=== PATIENT | male | born 1980 | race Caucasian/White ===

== ENCOUNTER 2018-02-21 17:30 | Emergency (ER) | payer MEDICAID ==
--- NOTE | 2018-02-21 18:38 | Emergency Department Record ---
History of Present Illness - General Chief Complaint: Back Pain/Injury Stated Complaint: LOWER AND UPPER BACK PAIN Time Seen by Provider: 02/21/18 18:35 Source: Patient Mode of Arrival: Ambulatory Limitations: No limitations - History of Present Illness Initial Comments: 37 yo male presents to ED for evaluation of his chronic mid-low back pain symptoms resulting from scoliosis and previous shoulder injury. Patient reports that he has been unable to see his pain specialist, and has been out of his Tramadol for 3 weeks. Patient has also attempted to call his PCP who has been on vacation. Patient reports that he has been taking Tramadol as needed for 6-8 years for his symptoms, denies new injury, fevers, lower extremity weakness, or numbness over the groin region. MD Complaint: Back pain Onset/Timin -: Year(s) Similar Symptoms Previously: Yes Place: Home Radiation: None Severity: Mild Severity scale (1-10): 4 Quality: Aching Consistency: Constant Improves With: None Worsens With: None Context: Unknown Associated Symptoms: Denies other symptoms - Related Data Previous Rx's Medication Instructions Recorded Tramadol HCl 50 mg PO Q6H PRN #15 tab 02/21/18 Allergies Allergy/AdvReac Type Severity Reaction Status Date / Time No Known Drug Allergies Allergy Verified 02/21/18 18:30 Travel Screening - Travel/Exposure Within Last 30 Days Have you traveled within the last 30 days?: No Review of Systems Constitutional: Denies: Chills, Fever, Malaise, Night sweats Eyes: Denies: Eye discharge, Eye pain ENT: Denies: Congestion, Ear pain, Epistaxis Respiratory: Denies: Cough, Dyspnea Cardiovascular: Denies: Chest pain, Dyspnea on exertion Endocrine: Denies: Fatigue, Heat or cold intolerance Gastrointestinal: Denies: Abdominal pain, Nausea, Vomiting Genitourinary: Denies: Incontinence, Retention Musculoskeletal: Reports: Back pain. Denies: Arthralgia, Gout Skin: Denies: Bruising, Change in color Neurological: Denies: Abnormal gait, Confusion, Headache Psychiatric: Denies: Anxiety Hematological/Lymphatic: Denies: Anemia, Blood Clots Past Medical History - SOCIAL HISTORY Smoking Status: Never smoker Alcohol Use: None Drug Use: None - RESPIRATORY Hx Respiratory Disorders: No - CARDIOVASCULAR Hx Cardio Disorders: No - NEURO Hx Neuro Disorders: No - GI Hx GI Disorders: No - Hx Genitourinary Disorders: No - ENDOCRINE Hx Endocrine Disorders: No - MUSCULOSKELETAL Hx Musculoskeletal Disorders: Yes Hx Back Injury: Yes Comment:: scoliosis, bulging discs - PSYCH Hx Psych Problems: No - HEMATOLOGY/ONCOLOGY Hx Hematology/Oncology Disorders: No Family Medical History Any Significant Family History?: No Physical Exam - General General Appearance: Alert, Oriented x3, Cooperative, Mild distress Limitations: No limitations - Head Head exam: Atraumatic, Normocephalic, Normal inspection Head exam detail: negative: Abrasion, Contusion, Worthington's sign, General tenderness, Hematoma, Laceration - Eye Eye exam: Normal appearance. negative: Conjunctival injection, Periorbital tenderness, Scleral icterus - ENT Ear exam: negative: Auricular hematoma, Auricular trauma Nasal Exam: negative: Active bleeding, Discharge, Dried blood Mouth exam: negative: Drooling, Laceration, Tongue elevation - Neck Neck exam: Normal inspection. negative: Meningismus, Tenderness - Respiratory Respiratory exam: Normal lung sounds bilaterally. negative: Respiratory distress, Rhonchi, Stridor - Cardiovascular Cardiovascular Exam: Regular rate, Normal rhythm, Normal heart sounds - GI/Abdominal GI/Abdominal exam: Soft. negative: Rebound, Rigid, Tenderness - Rectal Rectal exam: Deferred - exam: Deferred - Extremities Extremities exam: Normal inspection. negative: Pedal edema, Tenderness - Back Back exam: Denies: CVA tenderness (R), CVA tenderness (L) - Neurological Neurological exam: Alert, Normal gait, Oriented X3 - Psychiatric Psychiatric exam: Normal affect, Normal mood - Skin Skin exam: Abrasion Type of lesion: negative: abrasion Course Vital Signs 02/21/18 18:15 Temperature 98.3 F Pulse Rate 95 H Respiratory 20 Rate Blood Pressure 135/100 Pulse Ox 98 - Reevaluation(s) Reevaluation #1: 02/21/18 18:43 Patient was seen and examined, will refill Tramdol #15 tablets to get the patient through the weekend until he can follow-up with his PCP Saturday. Will also refer the patient to Dr. Arteaga for pain management consultation. Patient agrees with the plan of care as discussed and appears stable for discharge at this time. Disposition Disposition: Discharge Clinical Impression: Chronic back pain Qualifiers: Back pain location: back pain in unspecified location Back pain laterality: midline Qualified Code(s): M54.9 - Dorsalgia, unspecified Disposition: Home, Self-Care Condition: (2) Stable Instructions: Chronic Back Pain (ED) Additional Instructions: Return to ED if your symptoms worsen or if you have any concerns. Tramadol as directed. Follow-up with your family doctor in [address] Arteaga for consultation Saturday as well. Prescriptions: Tramadol HCl 50 mg PO Q6H PRN #15 tab PRN Reason: Pain - Moderate (5-7) Referrals: ROMULO ARTEAGA [DOCTOR OF OSTEOPATH] - [facility] [Provider Group] Forms: Patient Portal Access Time of Disposition: 18:37 Quality - Quality Measures Quality Measures: N/A - Blood Pressure Screening Does Patient Have Any of the Following: No Blood Pressure Classification: Pre-Hypertensive BP Reading Systolic Measurement: 129 Diastolic Measurement: 86 Screening for High Blood Pressure: < Pre-Hypertensive BP, F/U Documented > [ G8950] Pre-Hypertensive Follow-up Interventions: Referral to alternative/primary care provider.
== END 2018-02-21 19:06 | disposition home or self-care (01) ==
LOC: ER 17:30
DX: G89.29 Other chronic pain (principal); M54.5 Low back pain; M54.6 Pain in thoracic spine; M41.9 Scoliosis, unspecified
CPT/HCPCS: 99283

== ENCOUNTER 2018-02-24 13:41 | Emergency (ER) | payer MEDICAID ==
--- NOTE | 2018-02-24 14:23 | Emergency Department Record ---
History of Present Illness - General Chief Complaint: Back Pain/Injury Stated Complaint: BACK PAIN Time Seen by Provider: 02/24/18 14:09 Source: Patient Mode of Arrival: Ambulatory Limitations: No limitations - History of Present Illness Initial Comments: 37 yo male presents with back pain. He had a history of injury at age 23 from sports. He states that there was a mix up with scheduling with his PCP and pain specialities. He has been off his Tramadol for over a month. His chronic pain is in the low back. He has had numbness in the feet that has been ongoing and not new. No new symptoms. No changes in bowel or bladder function. No weakness. No recent MRI's. He was seen in [facility] ED on 02/21/18. No new symptoms since then. His pain specialist is Nick Enriquez MD Complaint: Back pain Onset/Timin -: Days(s) Similar Symptoms Previously: Yes Place: Home Radiation: None Severity scale (1-10): 4 Quality: Aching Consistency: Constant Improves With: None Worsens With: None Context: Other Associated Symptoms: Denies other symptoms Treatments Prior to Arrival: Prescription analgesics - Related Data Previous Rx's Medication Instructions Recorded Tramadol HCl 50 mg PO Q6H PRN #15 tab 02/21/18 Tramadol HCl 50 mg PO BID #16 tab 02/24/18 Allergies Allergy/AdvReac Type Severity Reaction Status Date / Time No Known Drug Allergies Allergy Verified 02/21/18 18:30 Travel Screening - Travel/Exposure Within Last 30 Days Have you traveled within the last 30 days?: No Review of Systems Constitutional: Denies: Chills, Fever, Malaise, Weakness Eyes: Denies: Eye discharge ENT: Denies: Congestion, Throat pain Respiratory: Denies: Cough Cardiovascular: Denies: Chest pain, Palpitations, Syncope Endocrine: Denies: Fatigue, Polydipsia, Polyuria Gastrointestinal: Denies: Abdominal pain, Diarrhea, Nausea, Vomiting Genitourinary: Denies: Dysuria, Frequency, Hematuria Musculoskeletal: Reports: Back pain. Denies: Arthralgia, Joint swelling, Myalgia Skin: Denies: Bruising, Change in color, Rash Neurological: Reports: Paresthesias (feet, long standing and not new), Tingling. Denies: Abnormal gait, Confusion, Headache, Numbness, Seizure, Tremors, Vertigo, Weakness Psychiatric: Denies: Anxiety Hematological/Lymphatic: Denies: Blood Clots, Easy bleeding, Easy bruising, Swollen glands Past Medical History - SOCIAL HISTORY Smoking Status: Never smoker - RESPIRATORY Hx Respiratory Disorders: No - CARDIOVASCULAR Hx Cardio Disorders: No - NEURO Hx Neuro Disorders: No - GI Hx GI Disorders: No - Hx Genitourinary Disorders: No - ENDOCRINE Hx Endocrine Disorders: No - MUSCULOSKELETAL Hx Musculoskeletal Disorders: Yes Hx Back Injury: Yes Comment:: scoliosis, bulging discs - PSYCH Hx Psych Problems: No - HEMATOLOGY/ONCOLOGY Hx Hematology/Oncology Disorders: No Family Medical History Any Significant Family History?: Yes Physical Exam - General General Appearance: Alert, Oriented x3, Cooperative, No acute distress Limitations: No limitations - Head Head exam: Atraumatic, Normocephalic, Normal inspection - Eye Eye exam: Normal appearance, PERRL. negative: Conjunctival injection, Scleral icterus - ENT ENT exam: Normal exam, Mucous membranes moist Ear exam: Normal external inspection Nasal Exam: Normal inspection Mouth exam: Normal external inspection Teeth exam: Normal inspection Throat exam: Normal inspection - Neck Neck exam: Normal inspection, Full ROM. negative: Tenderness - Respiratory Respiratory exam: Normal lung sounds bilaterally. negative: Respiratory distress - Cardiovascular Cardiovascular Exam: Regular rate, Normal rhythm, Normal heart sounds Peripheral Pulses: 2+: Radial (R), Radial (L) - GI/Abdominal GI/Abdominal exam: Soft. negative: Tenderness - Rectal Rectal exam: Deferred - exam: Deferred - Extremities Extremities exam: Normal inspection, Full ROM, Normal capillary refill. negative: Tenderness - Back Back exam: Reports: Normal inspection, Full ROM, Muscle spasm, Paraspinal tenderness, Tenderness, Vertebral tenderness (lumbar). Denies: Rash noted Image of Body Front/Back: 1 - tender paraspinal - Neurological Neurological exam: Alert, CN II-XII intact, Normal gait, Oriented X3, Reflexes normal. negative: Altered, Motor sensory deficit - Psychiatric Psychiatric exam: Normal affect, Normal mood. negative: Agitated, Anxious - Skin Skin exam: Dry, Intact, Normal color, Warm Course Vital Signs 02/24/18 13:45 Pulse Rate 91 H Respiratory 20 Rate Blood Pressure 150/99 Pulse Ox 98 - Reevaluation(s) Reevaluation #1: I discussed the case length with the patient. I explained the policy of this hospital on care home prescriptions having to come through a PCP or specialist. I reviewed the patient's MAPS. I discussed the MAPS with the patient at the bedside. He does not have a pattern of misuse or abuse. I explained choices to made effect his future MAPS record and can effect how future physicians view him as a patient. Given he does not have any abuse history I explained a limited Rx for Tramadol that must last until he sees his PCP. I explained he will not receive future prescriptions in the ED as this will need to be coordinated with his PCP. His examination is stable without any findings of weakness, neurologic impairment. He is judged to be honest and not seeking to abuse narcotics. He was informed all interactions with providers is monitored. Disposition Disposition: Discharge Clinical Impression: Sciatica Qualifiers: Laterality: bilateral Qualified Code(s): M54.31 - Sciatica, right side Disposition: Home, Self-Care Condition: (1) Good Instructions: Sciatica (ED) Additional Instructions: Call your doctor for close follow up Prescriptions: Tramadol HCl 50 mg PO BID #16 tab Forms: Patient Portal Access Time of Disposition: 14:24 Quality - Quality Measures Quality Measures: N/A - Blood Pressure Screening Does Patient Have Any of the Following: No Blood Pressure Classification: Hypertensive Reading Systolic Measurement: 150 Diastolic Measurement: 99 Screening for High Blood Pressure: < Pre-Hypertensive BP, F/U Documented > [ G8950] Pre-Hypertensive Follow-up Interventions: Referral to alternative/primary care provider.
== END 2018-02-24 14:32 | disposition home or self-care (01) ==
LOC: ER 13:41
DX: M54.31 Sciatica, right side (principal)
CPT/HCPCS: 99282

== ENCOUNTER 2018-03-04 17:40 | Emergency (ER) | payer MEDICAID ==
--- NOTE | 2018-03-04 18:19 | Emergency Department Record ---
History of Present Illness - General Chief Complaint: Back Pain/Injury Stated Complaint: BACK PAIN Time Seen by Provider: 03/04/18 18:03 Source: Patient Mode of Arrival: Ambulatory Limitations: No limitations - History of Present Illness Initial Comments: 37 yo male presents with persistent back pain. He has had back pain for many years since the age 23 after a sports injury. He was in the ED about 1 week ago with similar pain. He reports no changes in the pain. He has not been able to meet with his PCP or Pain specialist to refill his Tramadol. No new symptoms. No weakness, numbness or tingle. No fevers. No foot drop. He states he had an appointment today with he PCP by he was called and told it was cancelled because he has not been seen in over one year. He states he has an appointment with his pain specialist on March 10. He is asking for Tramadol to hold him over until then. This is his third ED visit at [facility] in one month MD Complaint: Back pain Place: Home Quality: Aching Consistency: Constant Improves With: None Worsens With: None Associated Symptoms: Denies other symptoms - Related Data Previous Rx's Medication Instructions Recorded Tramadol HCl 50 mg PO Q6H PRN #15 tab 02/21/18 Cyclobenzaprine HCl [Flexeril] 10 mg PO QHS #10 tab 03/04/18 Naproxen [Naprosyn] 500 mg PO Q12H #20 tab. 03/04/18 Allergies Allergy/AdvReac Type Severity Reaction Status Date / Time No Known Drug Allergies Allergy Verified 03/04/18 18:01 Travel Screening - Travel/Exposure Within Last 30 Days Have you traveled within the last 30 days?: No Review of Systems Constitutional: Denies: Chills, Fever, Weakness Eyes: Denies: Eye discharge ENT: Denies: Congestion, Throat pain Respiratory: Denies: Cough Cardiovascular: Denies: Chest pain, Syncope Endocrine: Denies: Fatigue Gastrointestinal: Denies: Abdominal pain, Diarrhea, Vomiting Genitourinary: Denies: Discharge, Dysuria, Frequency, Hematuria Musculoskeletal: Reports: Back pain Skin: Denies: Bruising, Change in color, Rash Neurological: Denies: Headache Psychiatric: Denies: Anxiety Hematological/Lymphatic: Denies: Easy bleeding, Easy bruising, Swollen glands Past Medical History - SOCIAL HISTORY Smoking Status: Never smoker Alcohol Use: None Drug Use: None - RESPIRATORY Hx Respiratory Disorders: No - CARDIOVASCULAR Hx Cardio Disorders: No - NEURO Hx Neuro Disorders: No - GI Hx GI Disorders: No - Hx Genitourinary Disorders: No - ENDOCRINE Hx Endocrine Disorders: No - MUSCULOSKELETAL Hx Musculoskeletal Disorders: Yes Hx Back Injury: Yes Comment:: scoliosis, bulging discs - PSYCH Hx Psych Problems: No - HEMATOLOGY/ONCOLOGY Hx Hematology/Oncology Disorders: No Family Medical History Any Significant Family History?: No Physical Exam - General General Appearance: Alert, Oriented x3, Cooperative, No acute distress Limitations: No limitations - Head Head exam: Normal inspection - Eye Eye exam: Normal appearance, PERRL. negative: Conjunctival injection - ENT ENT exam: Normal exam Ear exam: Normal external inspection Nasal Exam: Normal inspection Mouth exam: Normal external inspection - Neck Neck exam: Normal inspection, Full ROM, Tenderness. negative: Meningismus - Respiratory Respiratory exam: Normal lung sounds bilaterally - Cardiovascular Cardiovascular Exam: Regular rate, Normal rhythm, Normal heart sounds - Rectal Rectal exam: Deferred - exam: Deferred - Extremities Extremities exam: Normal inspection, Normal capillary refill. negative: Calf tenderness, Full ROM, Joint swelling, Pedal edema, Tenderness - Back Back exam: Reports: Full ROM, Paraspinal tenderness, Tenderness, Vertebral tenderness - Neurological Neurological exam: Alert, Normal gait, Oriented X3 - Psychiatric Psychiatric exam: Normal affect, Normal mood - Skin Skin exam: Dry, Intact, Normal color, Warm Course Vital Signs 03/04/18 18:02 Temperature 98.3 F Pulse Rate 77 Respiratory 18 Rate Blood Pressure 135/83 Pulse Ox 97 - Reevaluation(s) Reevaluation #1: 03/04/18 19:03 I discussed at length again the prescription refill policy at [facility] He requested Tramadol specifically. I informed him this will not be possible but I will treat his pain with alternatives He is to follow up with his specialist on the 7th He was instructed to not drive with in 8 hours of taking Flexeril. Disposition Disposition: Discharge Clinical Impression: Chronic back pain, Sciatica Disposition: Home, Self-Care Condition: (1) Good Instructions: Low Back Strain (ED) Additional Instructions: Continue to work with your doctors for assisted pain control Your assisted pain medications with have to come through your doctors Prescriptions: Cyclobenzaprine HCl [Flexeril] 10 mg PO QHS #10 tab Naproxen [Naprosyn] 500 mg PO Q12H #20 tab.dr Forms: Patient Portal Access Time of Disposition: 18:19 Quality - Quality Measures Quality Measures: N/A - Blood Pressure Screening Does Patient Have Any of the Following: No Blood Pressure Classification: Pre-Hypertensive BP Reading Systolic Measurement: 135 Diastolic Measurement: 83 Screening for High Blood Pressure: < Pre-Hypertensive BP, F/U Documented > [ G8950] Pre-Hypertensive Follow-up Interventions: Referral to alternative/primary care provider.
== END 2018-03-04 18:38 | disposition home or self-care (01) ==
LOC: ER 17:40
DX: M54.40 Lumbago with sciatica, unspecified side (principal)
CPT/HCPCS: 99282